=== PATIENT | male | born 1995 | race Caucasian/White ===

== ENCOUNTER 2018-10-01 18:26 | Emergency (ER) | payer OTHER ==
[2018-10-01] MEDS: LORAZEPAM 1 MG TAB PO (18:39)
[2018-10-01] MEDS: SOD CHLORIDE 0.9% 1,000 ML IV (18:45)
[2018-10-01 18:47] LABS: ADD MAN DIFF? NO
[2018-10-01] MEDS: LEVETIRACETAM 1000 MG (PMX) 100 ML IVPB (18:50)
[2018-10-01 18:52] LABS: ABNORMAL IP MESSAGE 1; BASOPHIL # 0.1 10^3/ul (0.0-0.1); BASOPHILS % 0.5 % (0.0-2.0); EOSINOPHILS % 0.4 % (0.0-7.0); HEMATOCRIT 38.2 % (42.0-52.0); HEMOGLOBIN 11.6 g/dl (14.0-18.0); LYMPHOCYTES # 1.7 10^3/ul (0.8-2.9); LYMPHOCYTES % 18.1 % (15.0-51.0); MEAN CORPUSCULAR HEMOGLOBIN 18.6 pg (29.0-33.0); MEAN CORPUSCULAR HGB CONC 30.4 g/dl (32.0-37.0); MEAN CORPUSCULAR VOLUME 61.3 fl (82.0-101.0); MONOCYTE # 0.5 10^3/ul (0.3-0.9); MONOCYTES % 4.8 % (0.0-11.0); NEUTROPHILS % 75.7 % (39.0-77.0); PLATELET COUNT 344 10^3/UL (140-415); POSITIVE DIFF @See below; RED BLOOD COUNT 6.23 10^6/ul (4.70-6.10); RED CELL DISTRIBUTION WIDTH 17.2 % (11.5-14.5)
[2018-10-01 18:52] LABS: WHITE BLOOD COUNT 9.3 10^3/ul (4.8-10.8)
[2018-10-01 19:12] LABS: ALANINE AMINOTRANSFERASE 18 IU/L (13-69); ALKALINE PHOSPHATASE 58 IU/L (42-121); ANION GAP 16 (5-13); ASPARTATE AMINO TRANSFERASE 22 IU/L (15-46); BILIRUBIN,INDIRECT 0.5 mg/dl (0-1.1); BILIRUBIN,TOTAL 0.5 mg/dl (0.2-1.3); BLOOD UREA NITROGEN 9 mg/dl (7-20); CALCIUM 9.3 mg/dl (8.4-10.2); CARBON DIOXIDE 25 mmol/L (21-31); CHLORIDE 103 mmol/L (97-110); CREATININE 0.75 mg/dl (0.61-1.24); Estimated GFR > 60 mL/min (>60); GLUCOSE 93 mg/dl (70-220); LIPASE 32 U/L (23-300); POTASSIUM 4.2 mmol/L (3.5-5.1); SODIUM 144 mmol/L (135-144); TOTAL PROTEIN 7.5 g/dl (6.1-8.1)
[2018-10-01 19:21] LABS: TROPONIN-I < 0.012 ng/ml (0.000-0.120)
== END 2018-10-01 20:30 | disposition home or self-care (01) ==
LOC: E/R 18:26
DX: F13.230 Sedative, hypnotic or anxiolytic dependence with withdrawal, uncomplicated (principal); R40.2252 Coma scale, best verbal response, oriented, at arrival to emergency department; R40.2362 Coma scale, best motor response, obeys commands, at arrival to emergency department; R40.2142 Coma scale, eyes open, spontaneous, at arrival to emergency department; F13.10 Sedative, hypnotic or anxiolytic abuse, uncomplicated
CPT/HCPCS: 36415; 71045; 80053; 83690; 84484; 85025; 93005; 96374; 99285-25